=== PATIENT | female | born 1965 | race Native Hawaiian/Other Pacific Islander ===

== ENCOUNTER 2017-03-30 12:23 | Emergency (ER) | payer SELFPAY ==
--- NOTE | 2017-03-30 13:31 | Cat Scan Report ---
CT HEAD WITHOUT CONTRAST: 03/30/17 12:23:00 CLINICAL: Neuro deficits. Left-sided facial paralysis for several days. TECHNIQUE: 2.5-mm noncontrast scans. COMPARISON:None FINDINGS: The ventricles and sulci are normal for age. No abnormal density. No mass or mass effect. No hemorrhage, edema or extra-axial collection. The sinuses are clear. Normal orbits and soft tissues. The calvarium and skull base are intact. IMPRESSION: Normal study.
[2017-03-30 14:02] LABS: Anion Gap 21 mmol/L; BUN/Creatinine Ratio 22; Blood Urea Nitrogen 13 mg/dL (7-17); Calcium 9.8 mg/dL (8.4-10.2); Carbon Dioxide 24 mmol/L (22-30); Chloride 98.4 mmol/L (98-107); Glucose 303 mg/dL (65-100); Potassium 4.7 mmol/L (3.6-5.0); Sodium 139 mmol/L (137-145)
[2017-03-30 14:09] LABS: INR 1.09 (0.87-1.13); Partial Thromboplastin Time 26.4 Sec. (24.2-36.6)
[2017-03-30 14:47] LABS: Basophils % (Auto) 0.3 % (0.0-1.8); Eosinophils % (Auto) 2.4 % (0.0-4.3); Hematocrit 35.5 % (30.3-42.9); Hemoglobin 11.6 gm/dl (10.1-14.3); Mean Corpuscular HGB Conc 33 % (30-34); Mean Corpuscular Hemoglobin 29 pg (28-32); Mean Corpuscular Volume 90 fl (79-97); Platelet Count 331 K/mm3 (140-440); Red Blood Count 3.94 M/mm3 (3.65-5.03); Red Cell Distribution Width 14.1 % (13.2-15.2); White Blood Count 12.4 K/mm3 (4.5-11.0)
[2017-03-30 18:00] VITALS: BP 139/85
== END 2017-03-30 21:01 | disposition left against medical advice (07) ==
LOC: ED 12:23
DX: I63.9 Cerebral infarction, unspecified (principal); Z53.21 Procedure and treatment not carried out due to patient leaving prior to being seen by health care provider
CPT/HCPCS: 36415; 70450; 80048; 84484; 85025; 85610; 85670; 85730; 93005; 93010

== ENCOUNTER 2017-09-30 16:52 | Emergency (ER) | payer OTHER ==
[2017-09-30 18:02] VITALS: BP 140/85
[2017-09-30] MEDS ORDERED: MOTRIN PO ONE (18:02)
== END 2017-09-30 21:28 | disposition left against medical advice (07) ==
LOC: ED 16:52
DX: Z53.21 Procedure and treatment not carried out due to patient leaving prior to being seen by health care provider (principal)

== ENCOUNTER 2017-11-27 10:20 | Outpatient (CLI) | payer OTHER ==
--- NOTE | 2017-11-27 16:05 | XRay Report ---
FINAL REPORT PROCEDURE: Three-view lumbar sacral spine series TECHNIQUE: Lumbar spine radiographs, including AP, lateral, and lumbosacral spot views. CPT 45728 HISTORY: TYPE 2 DIABETES, MELLITUS, CHRONIC LUMBALGIA COMPARISON: No prior studies are available for comparison. FINDINGS: There is been previous fusion procedure L4 to S1 level. Pedicle screws and stabilizing bars are in place. There is minimal retrolisthesis L4 in relation L5, approximately 3.5 millimeters. Small anterior osteophytic spurs are present lower thoracic spine as well as L1-2 L2-3 and L3-4 disc spaces. Mild degenerative changes are seen in the SI joints. Bone density appears normal. IMPRESSION: Prior fusion procedure. Minimal retrolisthesis present as described. Mild diffuse degenerative disc disease. No acute abnormalities are seen..
--- NOTE | 2017-11-27 16:08 | XRay Report ---
FINAL REPORT PROCEDURE: Three view cervical spine series TECHNIQUE: Cervical spine radiographs, AP, lateral, and open-mouth odontoid views. CPT 82819 HISTORY: TYPE 2 DIABETES, MELLITUS, CHRONIC LUMBALGIA COMPARISON: No prior studies are available for comparison. FINDINGS: No fracture or subluxation is seen. The prevertebral soft tissues appear normal. Anterior osteophytic spurring consistent with mild to moderate degenerative disc disease is visualized at C4-5, C5-6 and to a lesser degree C6-7. Height of the disc spaces is well preserved. Posterior elements are intact. IMPRESSION: Mild to moderate degenerative disc disease C4-5 through the C6-7 level. No acute abnormalities are identified.
== END 2017-11-27 10:21 | disposition home or self-care (01) ==
LOC: XRAY 10:20
PROVIDERS: ATTEND Internal Medicine
DX: M50.323 Other cervical disc degeneration at C6-C7 level (principal); E11.9 Type 2 diabetes mellitus without complications; M43.27 Fusion of spine, lumbosacral region; M47.897 Other spondylosis, lumbosacral region
CPT/HCPCS: 72040; 72100

== ENCOUNTER 2019-07-08 11:29 | Emergency (ER) | payer OTHER, SELFPAY ==
[2019-07-08 12:19] VITALS: BP 161/88
--- NOTE | 2019-07-08 12:22 | Event Note ---
ED Screening Note Date of service: 07/08/19 Time: 12:20 ED Screening Note: 53 y o female was sent here to be evaluated for dizziness, hedache and blurred vision worsening x 1 week was seen at [facility] department today and was sent here pt still cc of symptoms above This initial assessment/diagnostic orders/clinical plan/treatment(s) is/are subject to change based on patients health status, clinical progression and re- assessment by fellow clinical providers in the ED. Further treatment and workup at subsequent clinical providers discretion. Patient/guardian urged not to elope from the ED as their condition may be serious if not clinically assessed and managed. Initial orders include: labs ordered acc eval
--- NOTE | 2019-07-08 13:00 | XRay Report ---
CHEST 1 VIEW INDICATION: Lightheadedness/Dizziness. COMPARISON: None FINDINGS: Support devices: None. Heart: Within normal limits. Lungs/Pleura: No acute air space or interstitial disease. There is poor inspiration. Additional findings: None. IMPRESSION: No acute findings. Signer Name: Celestine Jones Jr, MD Signed: 07/08/2019 12:56 PM Workstation Name: [id number]
[2019-07-08 14:38] LABS: Basophils % (Auto) 0.3 % (0.0-1.8); Eosinophils # (Auto) 0.1 K/mm3 (0.0-0.4); Eosinophils % (Auto) 0.8 % (0.0-4.3); Hematocrit 36.3 % (30.3-42.9); Hemoglobin 12.1 gm/dl (10.1-14.3); Lymphocytes # (Auto) 2.6 K/mm3 (1.2-5.4); Mean Corpuscular HGB Conc 33 % (30-34); Mean Corpuscular Volume 92 fl (79-97); Monocytes # (Auto) 0.6 K/mm3 (0.0-0.8); Monocytes % (Auto) 6.3 % (0.0-7.3); Platelet Count 285 K/mm3 (140-440); Red Blood Count 3.97 M/mm3 (3.65-5.03); Red Cell Distribution Width 15.4 % (13.2-15.2)
[2019-07-08 15:02] LABS: BUN/Creatinine Ratio 33; Blood Urea Nitrogen 20 mg/dL (7-17); Calcium 9.9 mg/dL (8.4-10.2); Hemolysis Index 30
[2019-07-08 15:04] LABS: Creatine Kinase MB 1.5 ng/mL (0.0-4.0)
[2019-07-08] MEDS ORDERED: SODIUM CHLORIDE 0.9% 1000 ML 1,000 ML IV ONE (15:08)
--- NOTE | 2019-07-08 16:44 | Cat Scan Report ---
CT HEAD WITHOUT CONTRAST INDICATION / CLINICAL INFORMATION: headache/dizziness. TECHNIQUE: All CT scans at this location are performed using CT dose reduction for ALARA by means of automated e xposure control. COMPARISON: Head CT 03/30/2017 FINDINGS: HEMORRHAGE: No evidence of intracranial hemorrhage or extra-axial fluid collection. EXTRA-AXIAL SPACES: Cortical sulci, sylvian fissures and basilar cisterns have an unremarkable appear ance. VENTRICULAR SYSTEM: The ventricular system is of normal size and configuration. CEREBRAL PARENCHYMA: No areas of abnormal brain parenchymal attenuation are identified. There is no i ndication of recent infarction. MIDLINE SHIFT OR HERNIATION: There is no mass effect. CEREBELLUM / BRAINSTEM: Brainstem and cerebellum have an unremarkable appearance. INTRACRANIAL VESSELS:No abnormalities are identified on this noncontrast head CT. ORBITS: visualized portions of the orbits have an unremarkable appearance. SOFT TISSUES of HEAD: No significant abnormality. CALVARIUM: Evaluation of bone windows reveals no abnormalities. Persistence of the metopic suture is incidentally noted. PARANASAL SINUSES / MASTOID AIR CELLS: Paranasal sinuses are free from inflammatory mucosal disease. Mastoid air cells are normally pneumatized. ADDITIONAL FINDINGS: None. IMPRESSION: 1. No abnormality on head CT without contrast. No interval change. Signer Name: Elton Cagle MD Signed: 07/08/2019 4:39 PM Workstation Name: [id number]
[2019-07-08] MEDS ORDERED: METOCLOPRAMIDE 10 MG/2 ML INJ IV ONE (17:24)
[2019-07-08] MEDS ORDERED: diphenhydrAMINE 50 MG/ML VIAL IV ONE (17:24)
--- NOTE | 2019-07-08 17:28 | Emergency Department Report ---
ED Dizziness HPI - General Chief Complaint: Dizziness Stated Complaint: SENT BY /WILLIAM Time Seen by Provider: 07/08/19 14:59 Source: patient Mode of arrival: Ambulatory Limitations: No Limitations - History of Present Illness Initial Comments: This is a 53-year-old female nontoxic, well nourished in appearance, no acute signs of distress presents to the ED with c/o of dizziness and headache. Patient describes headache as diffuse with level of 3 out of 10. Patient denies thunderclap headache. Patient denies any radiation of pain. Patient denies any head trauma. Patient denies any visual changes. Patient denies worse headache. Patient stated that darkness makes headache better and bright lights make the headache worse. Patient stated the dizziness is worsened with position change. Patient denies any numbness, tingling, stiff neck, chest pain, shortness of breathe, numbness or tingling. She stated she was sent in by PCP for elevated b lood pressure. Patient denies any history of hypertension or taking medication for this. Denies any drug allergie with past medical history of diabetes which should currently does take medications for. MD Complaint: dizziness, other (headache) -: days(s) (1) Timing: gradual onset Description: "room spinning", lightheadedness History of Same: No History of Trauma: No Severity: mild Improves With: nothing Worsens With: nothing Associated Symptoms: denies other symptoms. denies: ataxia, chest pain, confusion, cough, diaphoresis, fever/chills, loss of appetite, malaise, rash, seizure, shortness of breath, syncope, weakness - Related Data Previous Rx's Medication Instructions Recorded Last Taken Type Mineral Oil [Mineral Oil Heavy] 30 ml FEEDTUBE TID #1 oil 09/02/14 Unknown Rx Polyethylene Glycol 3350 [Miralax] 17 gm PO DAILY #10 powder 09/02/14 Unknown Rx Allergies Allergy/AdvReac Type Severity Reaction Status Date / Time No Known Allergies Allergy Verified 09/01/14 18:37 ED Review of Systems ROS: Stated complaint: SENT BY /WILLIAM Other details as noted in HPI Constitutional: denies: chills, fever Eyes: denies: eye pain, eye discharge, vision change ENT: denies: ear pain, throat pain Respiratory: denies: cough, shortness of breath, wheezing Cardiovascular: denies: chest pain, palpitations Endocrine: no symptoms reported Gastrointestinal: denies: abdominal pain, nausea, diarrhea Genitourinary: denies: urgency, dysuria, discharge Musculoskeletal: denies: back pain, joint swelling, arthralgia Skin: denies: rash, lesions Neurological: headache, vertigo. 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 - Surgical History Past Surgical History?: No Additional Surgical History: Back surgery for disk herniation about 14 years ago - Social History Smoking Status: Never Smoker Substance Use Type: None - Medications Home Medications: Home Medications Medication Instructions Recorded Confirmed Last Taken Type Mineral Oil [Mineral Oil Heavy] 30 ml FEEDTUBE TID #1 oil 09/02/14 Unknown Rx Polyethylene Glycol 3350 [Miralax] 17 gm PO DAILY #10 powder 09/02/14 Unknown Rx ED Physical Exam - General Limitations: No Limitations General appearance: alert, in no apparent distress - Head Head exam: Present: atraumatic, normocephalic - Eye Eye exam: Present: normal appearance, PERRL, EOMI - Neck Neck exam: Present: normal inspection, full ROM. Absent: tenderness, meningismus, lymphadenopathy - Respiratory Respiratory exam: Present: normal lung sounds bilaterally. Absent: respiratory distress, wheezes, rales, rhonchi, stridor, chest wall tenderness, accessory muscle use, decreased breath sounds, prolonged expiratory - Cardiovascular Cardiovascular Exam: Present: regular rate, normal rhythm, normal heart sounds. Absent: irregular rhythm, systolic murmur, diastolic murmur, rubs, gallop - Extremities Exam Extremities exam: Present: normal inspection, full ROM - Back Exam Back exam: Present: normal inspection, full ROM. Absent: tenderness, CVA tenderness (R), CVA tenderness (L), muscle spasm, paraspinal tenderness, verte bral tenderness, rash noted - Neurological Exam Neurological exam: Present: alert, oriented X3, normal gait - Expanded Neurological Exam Expanded Patient oriented to: Present: person, place, time Cranial nerves: EOM's Intact: Normal, Facial Sensation: Normal Cerebellar function: Finger to Nose: Normal Upper motor neuron: Pronator Drift: Normal, Sensory Extinction: Normal Motor strength exam: RUE: 5, LUE: 5, RLE: 5, LLE: 5 Best Eye Response ([place]): (4) open spontaneously Best Motor Response ([place]): (6) obeys commands Best Verbal Response ([place]): (5) oriented [place] Total: 15 - Psychiatric Psychiatric exam: Present: normal affect, normal mood - Skin Skin exam: Present: warm, dry, intact, normal color. Absent: rash ED Course Vital Signs 07/08/19 11:51 Temperature 98.8 F Pulse Rate 100 H Respiratory 18 Rate Blood Pressure 161/88 O2 Sat by Pulse 97 Oximetry - Reevaluation(s) Reevaluation #1: 07/08/19 17:31 Patient is speaking in full sentences with no signs of distress noted. ED Medical Decision Making - Lab Data Result diagrams: 07/08/19 13:53 07/08/19 13:53 - Medical Decision Making This is a 29-year-old female that presents with headache and dizziness. Patient is stable and was examined by me. Patient is neurologically stable. Labs are unremarkable. Urine obtained. There is no stiff neck or neck pain. Vital signs are stable. Patient is afebrile. Patient received mwedical treatment in the ED which the patient stated that headache and dizziness has subsided and resolved. CT scan is unremarkable and dictated by the radiologist. Patient has a PCP so I instructed to the patient that she may want to speak with her provider for possible medications if HTN is continuing. Patient was referred to Follow-up with a primary care doctor in 3-5 days or if symptoms worsen and continue return to emergency room as soon as possible. At time of discharge, the patient does not seem toxic or ill in appearance. No acute signs of distress noted. Patient agrees to discharge treatment plan of care. No further questions noted by the patient. Critical care attestation.: If time is entered above; I have spent that time in minutes in the direct care of this critically ill patient, excluding procedure time. ED Disposition Clinical Impression: Dizziness Headache Qualifiers: Headache type: unspecified Headache chronicity pattern: acute headache Intractability: not intractable Qualified Code(s): R51 - Headache Disposition: DC-01 TO HOME OR SELFCARE Is pt being admited?: No Does the pt Need Aspirin: No Condition: Stable Instructions: Dizziness (ED), Acute Headache (ED) Additional Instructions: Follow-up with a primary care doctor in 3-5 days or if symptoms worsen and continue return to emergency room as soon as possible. Referrals: KATY DAUGHERTY,ADULT HEALTH [Other] - 3-5 Days PRIMARY CAREMD [Referring] - 3-5 Days GABE DICKERSON MD [Staff Physician] - 3-5 Days [facility] [Outside] - 3-5 Days Forms: Work/School Release Form(ED)
[2019-07-08] MEDS ORDERED: MECLIZINE 25 MG TAB PO ONE (17:30)
== END 2019-07-08 19:55 | disposition home or self-care (01) ==
LOC: ED 11:29
DX: R42 Dizziness and giddiness (principal); R51 Headache; I10 Essential (primary) hypertension; E11.9 Type 2 diabetes mellitus without complications; Z79.899 Other long term (current) drug therapy
CPT/HCPCS: 36415; 70450; 71045; 80048; 82550; 82553; 84484; 85025; 96361; 96374; 96375; 99284; J1200; J2765; J7030

== ENCOUNTER 2020-03-23 09:11 | Emergency (ER) | payer SELFPAY ==
[2020-03-23 09:18] VITALS: BP 156/92
[2020-03-23] MEDS ORDERED: ONDANSETRON 4 MG ODT TAB PO ONE (09:26)
--- NOTE | 2020-03-23 09:32 | Emergency Department Report ---
ED General Adult HPI - General Chief complaint: Nausea/Vomiting/Diarrhea Stated complaint: DIABETIC/NAUSEA/VOMIT PUI?: No Source: patient Mode of arrival: Ambulatory Limitations: No Limitations - History of Present Illness Initial comments: 54-year-old female presents to the emergency room for nausea and vomiting x1 day. Patient has a past medical history of diabetes for the last 30 years. She denies any chest pain admits to a dry cough and throat itchiness. Denies any shortness of breath loss of taste or smell. She has not received her flu vacc ination. She denies any dysuria but does admit to urinary frequency no diarrhea no fever no chills. Does states she has some mild abdominal pain that is bilateral that feels like it is cramping. Her current medication is NovoLog 70/30 40 units twice a day and metformin 500 mg twice a day. Patient does have a primary care doctor Dr. Koo at [facility] on [facility] in [facility]. Onset/Timin -: days(s) Location: abdomen Quality: other (cramping) Consistency: constant Associated Symptoms: cough, headaches, nausea/vomiting (no vomiting), other (Urinary frequency). denies: diaphoresis, fever/chills, shortness of breath, weakness - Related Data Previous Rx's Medication Instructions Recorded Last Taken Type Mineral Oil [Mineral Oil Heavy] 30 ml FEEDTUBE TID #1 oil 09/02/14 Unknown Rx polyethylene glycoL 3350 [Miralax] 17 gm PO DAILY #10 powder 09/02/14 Unknown Rx Ondansetron [Zofran Odt] 4 mg PO Q8HR PRN #12 tab.rapdis 03/23/20 Unknown Rx Allergies Allergy/AdvReac Type Severity Reaction Status Date / Time No Known Allergies Allergy Verified 09/01/14 18:37 ED Review of Systems ROS: Stated complaint: DIABETIC/NAUSEA/VOMIT Other details as noted in HPI Comment: All other systems reviewed and negative ED Past Medical Hx - Past Medical History Previous Medical History?: Yes Hx Hypertension: Yes Hx Diabetes: Yes Additional medical history: 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 - Surgical History Past Surgical History?: Yes Additional Surgical History: Back surgery for disk herniation about 14 years ago - Social History Smoking Status: Never Smoker Substance Use Type: None - Medications Home Medications: Home Medications Medication Instructions Recorded Confirmed Last Taken Type Mineral Oil [Mineral Oil Heavy] 30 ml FEEDTUBE TID #1 oil 09/02/14 Unknown Rx polyethylene glycoL 3350 [Miralax] 17 gm PO DAILY #10 powder 09/02/14 Unknown Rx Ondansetron [Zofran Odt] 4 mg PO Q8HR PRN #12 tab.rapdis 03/23/20 Unknown Rx ED Physical Exam - General Limitations: No Limitations General appearance: alert, in no apparent distress - Head Head exam: Present: atraumatic, normocephalic - Eye Eye exam: Present: normal appearance - ENT ENT exam: Present: mucous membranes moist - Neck Neck exam: Present: normal inspection - Respiratory Respiratory exam: Present: normal lung sounds bilaterally. Absent: respiratory distress - Cardiovascular Cardiovascular Exam: Present: regular rate, normal rhythm. Absent: systolic murmur, diastolic murmur, rubs, gallop - GI/Abdominal GI/Abdominal exam: Present: soft. Absent: distended, tenderness - Neurological Exam Neurological exam: Present: alert, oriented X3 - Expanded Neurological Exam Expanded Cranial nerves: EOM's Intact: Normal, Gag Reflex: Normal, Tongue Deviation: Normal, Nystagmus: Normal, Facial Sensation: Normal, Facial Palsy with Forehead Movement: Normal, Facial Palsy without Forehead Movement: Normal Cerebellar function: Finger to Nose: Normal, Heel to [place]: Normal, [place]: Normal Upper motor neuron: Ven[place]ata Neglect: Normal, Pronator Drift: Normal, Sensory Ex tinction: Normal Sensory exam: Upper Extremity Light Touch: Normal, Upper Extremity Pin Prick: Normal, Upper Extremity Temperature: Normal, UE 2 Point Discrimination: Normal, Lower Extremity Light Touch: Normal, Lower Extremity Pin Prick: Normal, Lower Extremity Temperature: Normal, LE 2 Point Discrimination: Normal Motor strength exam: RUE: 4, LUE: 4, RLE: 4, LLE: 4 Best Eye Response ([place]): (4) open spontaneously Best Motor Response ([place]): (6) obeys commands Best Verbal Response ([place]): (5) oriented [place] Total: 15 - Psychiatric Psychiatric exam: Present: normal affect - Skin Skin exam: Present: warm ED Course Vital Signs 03/23/20 09:16 Temperature 98.0 F Pulse Rate 96 H Respiratory 18 Rate Blood Pressure 156/92 O2 Sat by Pulse 99 Oximetry - Reevaluation(s) Reevaluation #1: 03/23/20 13:55 Patient reports she feels much better now after having fluids. ED Medical Decision Making - Lab Data Result diagrams: 03/23/20 09:31 03/23/20 13:45 - Medical Decision Making 54-year-old female presents to the emergency room for nausea and vomiting x1 day . Patient has a past medical history of diabetes for the last 30 years. She denies any chest pain admits to a dry cough and throat itchiness. Denies any shortness of breath loss of taste or smell. She has not received her flu vaccination. She denies any dysuria but does admit to urinary frequency no diarrhea no fever no chills. Does states she has some mild abdominal pain that is bilateral that feels like it is cramping. Her current medication is NovoLog 70/30 40 units twice a day and metformin 500 mg twice a day. Patient does have a primary care doctor Dr. Koo at [facility] on [facility] in [facility]. CBC CMP venous pH. Glucose was 272 patient was ordered normal saline 2 L IV. Repeat BMP has been ordered to check patient's sodium as it was 125 prior to fluids. Repeat blood sugar 212 by EMT. Repeat BMP has been ordered as her sodium was 125. Critical care attestation.: If time is entered above; I have spent that time in minutes in the direct care of this critically ill patient, excluding procedure time. ED Disposition Clinical Impression: Nausea & vomiting, Diabetes, Hyponatremia Disposition: DC-01 TO HOME OR SELFCARE Is pt being admited?: No Does the pt Need Aspirin: No Condition: Stable Instructions: Acute Nausea and Vomiting (ED), Diabetes Mellitus Type 2 in Adults (ED) Additional Instructions: Please take Zofran as needed for nausea and vomiting. I would like for you to eat 3 times a day. Increase your fluid intake advance your diet as tolerated. Follow-up with your primary care provider. Please drink Gatorade light or sugar-free to increase your sodium intake. Prescriptions: Ondansetron [Zofran Odt] 4 mg PO Q8HR PRN #12 tab.rapdis PRN Reason: Nausea And Vomiting Referrals: PRIMARY CARE, [Primary Care Provider] - 3-5 Days BELKIS KOO MD [Referring] - 3-5 Days
[2020-03-23] MEDS ORDERED: ACETAMINOPHEN 325 MG TAB PO ONE (09:33)
[2020-03-23 09:45] LABS: Basophils % (Auto) 0.3 % (0.0-1.8); Eosinophils # (Auto) 0.1 K/mm3 (0.0-0.4); Eosinophils % (Auto) 0.8 % (0.0-4.3); Hemoglobin 11.4 gm/dl (10.1-14.3); Lymphocytes # (Auto) 3.1 K/mm3 (1.2-5.4); Mean Corpuscular HGB Conc 34 % (30-34); Mean Corpuscular Volume 90 fl (79-97); Monocytes # (Auto) 0.6 K/mm3 (0.0-0.8); Monocytes % (Auto) 5.1 % (0.0-7.3); Platelet Count 346 K/mm3 (140-440); Red Blood Count 3.78 M/mm3 (3.65-5.03); Red Cell Distribution Width 14.6 % (13.2-15.2)
[2020-03-23 09:59] LABS: Alanine Aminotransferase 10 units/L (7-56); Blood Urea Nitrogen 11 mg/dL (7-17); Calcium 9.7 mg/dL (8.4-10.2); Hemolysis Index 0
[2020-03-23 10:08] LABS: BUN/Creatinine Ratio 18
[2020-03-23] MEDS ORDERED: SODIUM CHLORIDE 0.9% 1000 ML 2,000 ML IV ONE (10:15)
[2020-03-23 14:58] LABS: BUN/Creatinine Ratio 16; Blood Urea Nitrogen 8 mg/dL (7-17); Calcium 8.6 mg/dL (8.4-10.2); Hemolysis Index 0
== END 2020-03-23 15:55 | disposition home or self-care (01) ==
LOC: ED 09:11
DX: E87.1 Hypo-osmolality and hyponatremia (principal); E11.9 Type 2 diabetes mellitus without complications; I10 Essential (primary) hypertension; Z98.890 Other specified postprocedural states; Z79.899 Other long term (current) drug therapy
CPT/HCPCS: 36415; 80048; 80053; 82805; 82962; 83690; 85025; 96360; 96361; 99283; J7030; Q0162

== ENCOUNTER 2021-04-29 08:56 | Emergency (ER) | payer SELFPAY ==
[2021-04-29 09:03] VITALS: BP 147/78
[2021-04-29] MEDS ORDERED: diphenhydrAMINE 50 MG/ML VIAL IV ONE (09:38)
[2021-04-29] MEDS ORDERED: METOCLOPRAMIDE 10 MG/2 ML INJ IV ONE (09:38)
[2021-04-29] MEDS ORDERED: KETOROLAC 30 MG/1 ML INJ IV ONE (09:38)
--- NOTE | 2021-04-29 11:06 | XRay Report ---
ABDOMEN 2 VIEW INDICATION / CLINICAL INFORMATION: Abdominal tightness and discomfort. COMPARISON: None available. FINDINGS: TUBES / LINES: None. BOWEL GAS PATTERN: No significant abnormality. FREE AIR / EXTRALUMINAL GAS: None seen. ADDITIONAL FINDINGS: Moderate amount of colonic stool. Postsurgical changes of the lower lumbar spine . IMPRESSION: 1. No significant abnormality. Signer Name: Natanael Davidson MD Signed: 04/29/2021 11:01 AM Workstation Name: [id number]
--- NOTE | 2021-04-29 11:10 | Cat Scan Report ---
CT HEAD WITHOUT CONTRAST INDICATION / CLINICAL INFORMATION: Persistent WILLIAMSON left unilateral numbness to hand/fee Dizzy . TECHNIQUE: All CT scans at this location are performed using CT dose reduction for ALARA by means of automated exposure control. COMPARISON: None available. FINDINGS: HEMORRHAGE: None. ACUTE INFARCTION: No Significant Abnormality MASS/MASS EFFECT: No Significant Abnormality CEREBRAL PARENCHYMA: No acute focal attenuation abnormality. VENTRICULAR SYSTEM: Normal in size and morphology for the patient's age. ORBITS: Normal as visualized. SKULL: No significant abnormality. PARANASAL SINUSES / MASTOID AIR CELLS: Normal as visualized. ADDITIONAL FINDINGS: None. IMPRESSION: 1. No acute intracranial abnormality. Signer Name: Natanael Davidson MD Signed: 04/29/2021 11:06 AM Workstation Name: [id number]
--- NOTE | 2021-04-29 11:30 | Emergency Department Report ---
ED General Adult HPI - General Chief complaint: Weakness Stated complaint: DIABETIC, LT HANDS, FOOT NUMB Time Seen by Provider: 04/29/21 09:37 Source: patient Mode of arrival: Ambulatory Limitations: No Limitations - History of Present Illness Initial comments: The patient was evaluated in the emergency department for symptoms described in the history of present illness. He/she was evaluated in the context of the global COVID-19 pandemic, which necessitated consideration that the patient might be at risk for infection with the virus that causes COVID-19. Institutional protocols and algorithms that pertain to the evaluation of patients at risk for COVID-19 are in a state of rapid change based on information released by regulatory bodies including the CDC and federal and state organizations. These policies and algorithms were followed during the patient's care in the emergency department. Please note that these policies, procedures and recommendations changed on a rapid basis. 55-year-old female who speaks Bulgarian presents to the emergency room complaining of 2-week history of a headache that is constant. She also reports nausea. She states she has had left hand and left foot numbness x1 week. Patient reports that for 1 week she has not been able to have a bowel movement. She reports she did have an ultrasound done 2 weeks ago that her doctor referred her to but has not received the results. She states that she last took Aleve for headache yesterday. Patient reports that she is menopausal. States that she feels like she is bloated. But has not gained any weight. Onset/Timin -: week(s) Location: head Severity scale (0 -10): 0 Consistency: constant Improves with: none Worsens with: none Associated Symptoms: nausea/vomiting Treatments Prior to Arrival: none - Related Data Previous Rx's Medication Instructions Recorded Last Taken Type Mineral Oil [Mineral Oil Heavy] 30 ml FEEDTUBE TID #1 oil 09/02/14 Unknown Rx polyethylene glycoL 3350 [Miralax] 17 gm PO DAILY #10 powder 09/02/14 Unknown Rx Ondansetron [Zofran Odt] 4 mg PO Q8HR PRN #12 tab.rapdis 03/23/20 Unknown Rx Docusate Sodium [Colace] 100 mg PO BID PRN #20 capsule 04/29/21 Unknown Rx Gabapentin 100 mg PO Q8HR #15 capsule 04/29/21 Unknown Rx Ibuprofen [Motrin 600 MG tab] 600 mg PO Q8H PRN #15 tablet 04/29/21 Unknown Rx Allergies Allergy/AdvReac Type Severity Reaction Status Date / Time No Known Allergies Allergy Verified 09/01/14 18:37 ED Review of Systems ROS: Stated complaint: DIABETIC, LT HANDS, FOOT NUMB Other details as noted in HPI ED Past Medical Hx - Past Medical History Previous Medical History?: Yes Hx Hypertension: Yes Hx Diabetes: Yes Additional medical history: 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 - Surgical History Past Surgical History?: Yes Additional Surgical History: Back surgery for disk herniation about 14 years ago - Social History Smoking Status: Never Smoker Substance Use Type: None - Medications Home Medications: Home Medications Medication Instructions Recorded Confirmed Last Taken Type Mineral Oil [Mineral Oil Heavy] 30 ml FEEDTUBE TID #1 oil 09/02/14 Unknown Rx polyethylene glycoL 3350 [Miralax] 17 gm PO DAILY #10 powder 09/02/14 Unknown Rx Ondansetron [Zofran Odt] 4 mg PO Q8HR PRN #12 tab.rapdis 03/23/20 Unknown Rx Docusate Sodium [Colace] 100 mg PO BID PRN #20 capsule 04/29/21 Unknown Rx Gabapentin 100 mg PO Q8HR #15 capsule 04/29/21 Unknown Rx Ibuprofen [Motrin 600 MG tab] 600 mg PO Q8H PRN #15 tablet 04/29/21 Unknown Rx ED Physical Exam - General Limitations: No Limitations General appearance: alert, in no apparent distress - Head Head exam: Present: atraumatic, normocephalic - Eye Eye exam: Present: normal appearance - ENT ENT exam: Present: mucous membranes moist - Neck Neck exam: Present: normal inspection - Respiratory Respiratory exam: Present: normal lung sounds bilaterally. Absent: respiratory distress - Cardiovascular Cardiovascular Exam: Present: regular rate, normal rhythm. Absent: systolic murmur, diastolic murmur, rubs, gallop - GI/Abdominal GI/Abdominal exam: Present: soft, normal bowel sounds - Extremities Exam Extremities exam: Present: normal inspection - Back Exam Back exam: Present: normal inspection - Neurological Exam Neurological exam: Present: alert, oriented X3 - Expanded Neurological Exam Expanded Cranial nerves: EOM's Intact: Normal, Gag Reflex: Normal, Tongue Deviation: Normal, Nystagmus: Normal, Facial Sensation: Normal, Facial Palsy with Forehead Movement: Normal, Facial Palsy without Forehead Movement: Normal Cerebellar function: Finger to Nose: Normal, Heel to Holley: Normal, Romberg: Normal Upper motor neuron: Venkata Neglect: Normal, Pronator Drift: Normal, Babinski Sign: Normal, Sensory Extinction: Normal Sensory exam: Upper Extremity Light Touch: Normal, Upper Extremity Pin Prick: Normal, Upper Extremity Temperature: Normal, UE 2 Point Discrimination: Normal, Lower Extremity Light Touch: Normal, Lower Extremity Pin Prick: Normal, Lower Extremity Temperature: Normal, LE 2 Point Discrimination: Normal Motor strength exam: RUE: 5, LUE: 5, RLE: 5, LLE: 5 Best Eye Response ([place]): (4) open spontaneously Best Motor Response ([place]): (6) obeys commands Best Verbal Response ([place]): (5) oriented Bakari Total: 15 - Psychiatric Psychiatric exam: Present: normal affect, normal mood - Skin Skin exam: Present: warm, dry, intact, normal color. Absent: rash ED Course Vital Signs 04/29/21 04/29/21 09:01 10:05 Temperature 98.4 F 98.0 F Pulse Rate 98 H 98 H Respiratory 20 18 Rate Blood Pressure 147/78 Blood Pressure 147/78 [Right] O2 Sat by Pulse 98 98 Oximetry ED Medical Decision Making - Radiology Data Radiology results: report reviewed My Comment(s) Study Comments [address] [address] XRay Report Signed Patient: NITESH RIBERA MR#: [id number] : 1965 Acct:[id number] Age/Sex: 55 / F ADM Date: 04/29/21 Loc: ED Attending Dr: Ordering Physician: KELIN SERRANO Date of Service: 04/29/21 Procedure(s): XR abdomen 2V Accession Number(s): [id number] cc: KELIN SERRANO Fluoro Time In Minutes: ABDOMEN 2 VIEW INDICATION / CLINICAL INFORMATION: Abdominal tightness and discomfort. COMPARISON: None available. FINDINGS: TUBES / LINES: None. BOWEL GAS PATTERN: No significant abnormality. FREE AIR / EXTRALUMINAL GAS: None seen. ADDITIONAL FINDINGS: Moderate amount of colonic stool. Postsurgical changes of the lower lumbar spine. IMPRESSION: 1. No significant abnormality. Signer Name: Natanael Davidson MD Signed: 04/29/2021 11:01 AM Workstation Name: [id number] Transcribed By: BRENT Dictated By: NATANAEL DAVIDSON MD Electronically Authenticated By: NATANAEL DAVIDSON MD Signed Date/Time: 04/29/211100 DD/ 00 TD/TT: [facility] [address] [place] [address] Cat Scan Report Signed Patient: NITESH RIBERA MR#: [id number] : 1965 Acct:[id number] Age/Sex: 55 / F ADM Date: 04/29/21 Loc: ED Attending Dr: Ordering Physician: KELIN SERRANO Date of Service: 04/29/21 Procedure(s): CT head/brain wo con Accession Number(s): [id number] cc: KELIN SERRANO CT HEAD WITHOUT CONTRAST INDICATION / CLINICAL INFORMATION: Persistent WILLIAMSON left unilateral numbness to hand/fee Dizzy . TECHNIQUE: All CT scans at this location are performed using CT dose reduction for ALARA by means of automated exposure control. COMPARISON: None available. FINDINGS: HEMORRHAGE: None. ACUTE INFARCTION: No Significant Abnormality MASS/MASS EFFECT: No Significant Abnormality CEREBRAL PARENCHYMA: No acute focal attenuation abnormality. VENTRICULAR SYSTEM: Normal in size and morphology for the patient's age. ORBITS: Normal as visualized. SKULL: No significant abnormality. PARANASAL SINUSES / MASTOID AIR CELLS: Normal as visualized. ADDITIONAL FINDINGS: None. IMPRESSION: 1. No acute intracranial abnormality. Signer Name: Natanael Davidson MD Signed: 04/29/2021 11:06 AM Workstation Name: [id number] Transcribed By: BRENT Dictated By: NATANAEL DAVIDSON MD Electronically Authenticated By: NATANAEL DAVIDSON MD Signed Date/Time: 04/29/211105 DD/ 04 TD/TT: - Medical Decision Making 55-year-old female who speaks Bulgarian presents to the emergency room complaining of 2-week history of a headache that is constant. She also reports nausea. She states she has had left hand and left foot numbness x1 week. Patient reports that for 1 week she has not been able to have a bowel movement. She reports she did have an ultrasound done 2 weeks ago that her doctor referred her to but has not received the results. She states that she last took Aleve for headache yesterday. Patient reports that she is menopausal. States that she feels like she is bloated. But has not gained any weight. CT of head shows no acute abnormalities. X-ray of abdomen 2 view shows moderate amount of colonic stool as well as hardware to her lower lumbar area. This can also be a reason why patient is having numbness to her hands and legs. It also can be due from her neuropathy from being a diabetic that she reports has had for 30 years. Patient has had no recent traumas. Patient was also given a headache cocktail of Toradol Benadryl and Reglan. Patient is instructed to follow back up with her primary care provider. Her blood sugar was mildly elevated at 239. Critical care attestation.: If time is entered above; I have spent that time in minutes in the direct care of this critically ill patient, excluding procedure time. ED Disposition Clinical Impression: Diabetic neuropathy Headache Qualifiers: Headache type: unspecified Headache chronicity pattern: acute headache Intractability: intractable Qualified Code(s): R51.9 - Headache, unspecified Diabetes Qualifiers: Diabetes mellitus type: type 2 Diabetes mellitus technician terminal and repeater insulin use: without jail use Diabetes mellitus complication status: with circulatory com plication Constipation Qualifiers: Constipation type: unspecified constipation type Qualified Code(s): K59.00 - Constipation, unspecified Disposition: 01 HOME / SELF CARE / HOMELESS Is pt being admited?: No Does the pt Need Aspirin: No Condition: Stable Instructions: Diabetes Mellitus Type 2 in Adults (ED), Peripheral Neuropathy, Probiotics Additional Instructions: Please take medications as prescribed. Follow-up with your primary care provider. X-ray of your belly shows you have moderate constipation. CAT scan of your head shows no acute abnormalities. Gabapentin to help with the neuropathy. Ibuprofen for your headache and Colace is for your constipation. Be sure to increase your fluid intake. You can try [id number] probiotics any brand should be suffice. Be sure to increase your water intake and advance your diet as tolerated. Prescriptions: Docusate Sodium [Colace] 100 mg PO BID PRN #20 capsule PRN Reason: Constipation Gabapentin 100 mg PO Q8HR #15 capsule Ibuprofen [Motrin 600 MG tab] 600 mg PO Q8H PRN #15 tablet PRN Reason: Pain Referrals: PRIMARY CARE, [Primary Care Provider] - 3-5 Days BELKIS DIGGS MD [Referring] - 3-5 Days Forms: Work/School Release Form(ED)
== END 2021-04-29 11:45 | disposition home or self-care (01) ==
LOC: ED 08:56
DX: E11.42 Type 2 diabetes mellitus with diabetic polyneuropathy (principal); R51.9 Headache, unspecified; K59.00 Constipation, unspecified; I10 Essential (primary) hypertension; Z79.899 Other long term (current) drug therapy
CPT/HCPCS: 70450; 74019; 82962; 96374; 96375; 99284; J1200; J1885; J2765